=== PATIENT | female | born 1965 | race Asian ===

== ENCOUNTER 2017-11-29 09:31 | Emergency (ER) | payer BC, OTHER ==
[2017-11-29 09:39] VITALS: TEMP 99.1; BMI 25.4
--- NOTE | 2017-11-29 10:50 | PDOC ---
History of Present Illness - General Chief Complaint: Laceration Stated Complaint: S/P FALL Time Seen by Provider: 11/29/17 09:48 - History of Present Illness Initial Comments: 11/29/17 10:56 Chief complaint: Head injury History of present illness: Was walking her dog at approximately 7:30 AM, tripped and fell, striking her right forehead on the ground. No loss of consciousness. No drowsiness lethargy or confusion afterwards. No lightheadedness, dizziness, vertigo, headache, visual or focal neurologic symptoms, unsteadiness of gait. Bleeding has subsided Review of systems: As above. Remaining systems reviewed and found to be negative Past medical history: Healthy female except for mild hypertension controlled on medication. 2 prior C-sections. Social/family history reviewed and noncontributory Physical exam: Alert oriented 3 well-developed well-nourished no acute distress cheerful and cooperative Afebrile, vital signs normal except for mildly elevated blood pressure Head: No hematoma, tenderness, or contusions noted. 4.5 cm laceration at the hairline, right upper forehead, no bony depression or skull defect palpable PERRLA 4 mm, fundi benign with sharp disc margins and good central venous pulsations, ENT clear Neck without tenderness or deformity, full range of motion without pain Chest clear. No chest wall rib cage tenderness or deformity CV regular without murmur rub or gallop Abdomen benign Extremities no visible or palpable trauma, full range of motion without pain Neurological C2 to 12 intact. Gait stable and unimpaired. No focal sensory or motor deficits. Strength full and symmetric Impression: Minor head injury, scalp laceration, no neurological signs or symptoms. Plan: Repair of laceration, head injury instructions, close follow-up as necessary. Past History - Past Medical History Allergies/Adverse Reactions: Allergies Allergy/AdvReac Type Severity Reaction Status Date / Time No Known Allergies Allergy Verified 11/29/17 09:42 Home Medications: Ambulatory Orders Chlorthalidone [Hygroton -] 25 mg PO DAILY 11/29/17 Losartan Potassium [Cozaar] 100 mg PO DAILY 11/29/17 COPD: No HTN: Yes - Suicide/Smoking/Psychosocial Hx Smoking History: Never smoked Hx Alcohol Use: No Drug/Substance Use Hx: No *Physical Exam - Vital Signs Last Vital Signs Temp Pulse Resp BP Pulse Ox 99.1 F 76 20 174/100 99 11/29/17 09:33 11/29/17 09:33 11/29/17 09:33 11/29/17 09:33 11/29/17 09:33 Medical Decision Making - Medical Decision Making 11/29/17 10:59 Procedure note: Repair of laceration Skin prepped with Betadine. Wound scrubbed and irrigated copiously with normal saline Anesthesia 1% Xylocaine plain Good anesthetic result Wound margins trimmed, skin slightly undermined to approximate edges accurately Wound closed with 5-0 nylon interrupted skin sutures with mild edge eversion Bacitracin and dressing applied Wound care instructions Patient will check with primary physician regarding tetanus immunization status. She is instructed to obtain tetanus booster if needed within 3 day window. She understands and agrees. Fully ambulatory and in no pain or other distress upon discharge to follow-up as directed *DC/Admit/Observation/Transfer Diagnosis at time of Disposition: Scalp laceration Qualifiers: Encounter type: initial encounter Qualified Code(s): S01.01XA - Laceration without foreign body of scalp, initial encounter - Discharge Dispostion Disposition: HOME Condition at time of disposition: Stable Admit: No - Referrals - Patient Instructions Printed Discharge Instructions: DI for Laceration Repair, DI for Closed Head Injury Additional Instructions: Keep moist at all times with antibiotic ointment. Keep covered. Recheck immediately if sign of infection. Otherwise suture removal in 5 days. Check with primary physician. If you tetanus booster is not up to date, please obtain one or return to the ER within 3 days. - Post Discharge Activity
[2017-11-29 11:10] VITALS: BP 160/70; PULSE 88
== END 2017-11-29 11:10 | disposition home or self-care (01) ==
LOC: FER 09:31
PROC: 0HQ0XZZ Repair Scalp Skin, External Approach (ICD-10-PCS; principal; 2017-11-29)
DX: S01.01XA Laceration without foreign body of scalp, initial encounter (principal); W18.39XA Other fall on same level, initial encounter; Y93.K1 Activity, walking an animal; Y92.9 Unspecified place or not applicable; I10 Essential (primary) hypertension
CPT/HCPCS: 99282-25

== ENCOUNTER 2017-12-04 08:19 | Emergency (ER) | payer BC ==
--- NOTE | 2017-12-04 08:22 | PDOC ---
Suture Removal/Wound Check HPI - History of Present Illness Chief Complaint: Suture/Staple Removal(Here) Stated Complaint: suture removal Time Seen by Provider: 12/04/17 08:20 History Source: Yes: Patient Exam Limitations: Yes: No Limitations Treated at: [facility] ED Date of Last ED visit: 11/29/17 (for eval of fall, head injury, scalp lac, skin on hand avulsion) - Previous ED Treatment Type of procedure performed on last visit: Yes: Laceration Repair Tetanus Immunization: Yes: Up to Date - Onset of Previous Treatment Date of Occurence: 11/29/17 (scalp lac repair with 5-0 sutures) Select one - (for the option above): Days (6 days ago) Comment:: 12/04/17 08:55 52yo female presents for eval of suture removal. Pt with a scalp laceration from a fall last monday. Pt repaired with 5-0 sutures. Pt denies bleeding, oozing from the wound. Pt with skin avulsions to back of R hand from the fall - healing well. Pt denies f/c. No phipps. No neck pain. No other complaints. Pt has been using antibiotic cream to the wound. Pt denies all other complaints. 12/04/17 08:57 PMHx: htn pshx: 2 c sections allergies: nkda Past History - Past Medical History Allergies/Adverse Reactions: Allergies Allergy/AdvReac Type Severity Reaction Status Date / Time No Known Allergies Allergy Verified 11/29/17 09:42 Home Medications: Ambulatory Orders Chlorthalidone [Hygroton -] 25 mg PO DAILY 11/29/17 Losartan Potassium [Cozaar] 100 mg PO DAILY 11/29/17 COPD: No HTN: Yes - Suicide/Smoking/Psychosocial Hx Smoking History: Never smoked Hx Alcohol Use: No Drug/Substance Use Hx: No Suture Removal/Wound Check PE - Physical Exam Laceration/Wound Check Symptoms: reports: Improved Comments: 12/04/17 08:57 5-0 sutures to R forehead scalp - wound clean, dry, intact, no surrounding erythema, no purulent drainage Current Severity Level: None Maximum Severity Level: None Pain Localization: None Location of Laceration/Wound: right: Head (R forehead/scalp lac with sutures in place) Pain Radiation: None Comments: 12/04/17 09:00 head: sutures in place to R scalp/forehead, no drainage, no surrounding erythema heart: RRR lungs: cta b/l hand: R hand posterior aspect with healing avulsion injury - no surrounding erythema, no drainage from wound neuro: no focal neuro deficits, ambulates with a steady gait *Review of Systems - Review of Systems Able to Perform ROS?: Yes Constitutional: No: Chills, Fever HEENTM: No: Eye Pain, Blurred Vision, Recent change in vision Respiratory: No: Cough, Shortness of Breath Cardiac (ROS): No: Chest Pain ABD/GI: No: Diarrhea, Nausea, Vomiting Musculoskeletal: No: Back Pain, Neck Pain Integumentary: Yes: Other (healing skin avulsions to R posterior hand, no surrounding erythema or drainage from wound, sutured laceration to R forehead/ scalp - no surrounding erythema or drainage). No: Erythema, Rash Neurological: No: Headache All Other Systems: Reviewed and Negative Procedures - Additional Procedures Additional Procedures: other (sutures removed from R scalp/forehead without difficulty. pt tolerated the procedure well) Medical Decision Making - Medical Decision Making 12/04/17 08:30 52yo female with laceration to R forehead from slip and fall last -pt spoke with her PMD and had tetanus vaccines last year sutures removed from R forehead local wound care to suture site and to R hand stable for d/c to home discussed local wound care at home *DC/Admit/Observation/Transfer Diagnosis at time of Disposition: Visit for suture removal - Discharge Dispostion Disposition: HOME Condition at time of disposition: Stable Admit: No - Referrals Referrals: Manuel Young MD [Non Staff, Medical] - - Patient Instructions Printed Discharge Instructions: DI for Suture Removal Additional Instructions: Please apply antibiotic cream to laceration to forehead and to hand. Please keep both areas clean and dry. Please make an appointment to see your PMD for a wound check. Please return to the ED with any further concerns. - Post Discharge Activity
[2017-12-04 08:23] VITALS: BMI 25.4
[2017-12-04 08:34] VITALS: BP 142/87; PULSE 73; TEMP 98.7
== END 2017-12-04 08:36 | disposition home or self-care (01) ==
LOC: FER 08:19
DX: Z48.02 Encounter for removal of sutures (principal)
CPT/HCPCS: 99281-25